=== PATIENT | female | born 1930 | race Hispanic/Latino ===

== ENCOUNTER 2017-07-10 14:40 | Emergency (ER) | payer MEDICARE ==
[2017-07-10 15:00] LABS: BASOPHILS % (AUTO) 0.3 % (0.0-5.0); HEMATOCRIT 42.8 % (36-48); MEAN CORPUSCULAR HEMOGLOBIN 28.8 pg (27.0-33.0); MEAN CORPUSCULAR HGB CONC 33.5 g/dL (32.0-36.0); MEAN CORPUSCULAR VOLUME 85.8 fL (79-99); MONOCYTES % (AUTO) 7.8 % (3.0-13.0); NEUTROPHILS % (AUTO) 53.9 % (40.0-77.0); NUCLEATED RED BLOOD CELLS 0.1 % (0.0-0.19); PLATELET COUNT (AUTO) 175 K/uL (130-400); RED BLOOD CELL COUNT(AUTO) 4.99 MIL/uL (4.00-5.50); RED CELL DISTRIBUTION WIDTH 13.2 % (11.0-15.5); WHITE BLOOD COUNT (AUTO) 5.3 K/uL (4.8-10.8)
[2017-07-10 15:03] LABS: POTASSIUM 4.1 mmol/L (3.5-5.1)
[2017-07-10] MEDS ORDERED: SODIUM CHLORIDE 0.9% 1000ML 1,000 ML IV ONE (15:13)
[2017-07-10] MEDS ORDERED: LORAZEPAM 2 MG/ML 1 ML VIAL ONE (15:13)
== END 2017-07-10 16:48 | disposition home or self-care (01) ==
LOC: EDH 14:40
DX: G20 Parkinson's disease (principal); F95.9 Tic disorder, unspecified; I10 Essential (primary) hypertension; Z72.0 Tobacco use; Z88.0 Allergy status to penicillin
CPT/HCPCS: 36415; 70450; 80048; 82948; 84484; 85025; 96361; 96374; 99285; J2060; J7030